=== PATIENT | male | born 1965 | race Caucasian/White ===

== ENCOUNTER 2019-05-09 06:47 | Day surgery (SDC) | payer BC, OTHER ==
[~2019-05-09 06:47] MED LIST: Lactated Ringers 1,000 ML IV SCH; Sodium Chloride 0.9% 10 ML Syringe FLUSH PRN
[2019-05-09] MEDS ORDERED: Midazolam 1 MG/ML 2 ML SDV IV ONE (06:48)
[2019-05-09] MEDS ORDERED: Propofol 200 MG/20 ML SDV IV ONE (06:48)
--- NOTE | 2019-05-09 08:21 | PCM.OPNOTE ---
- General Post-Op/Procedure Note Date of Surgery/Procedure: 05/09/19 Operative Procedure(s): c scope with biopsy Findings: ascending colon polyp Pre Op Diagnosis: screening Post-Op Diagnosis: colon polyp Anesthesia Technique: MAC Primary Surgeon: Bismark Yañez Anesthesia Provider: Jordan Roldan Pathology: ascending colon Complications: None Condition: Good Free Text/Narrative:: see dictation
--- NOTE | 2019-05-09 10:58 | OR ---
DATE OF OPERATION: 05/09/2019 SURGEON: Bismark Yañez MD PROCEDURE PERFORMED: Colonoscopy with cold forceps biopsy. PREOPERATIVE DIAGNOSIS: Need for screening colonoscopy. POSTOPERATIVE DIAGNOSIS: Polyp, ascending colon. INDICATIONS FOR PROCEDURE: This is a 54-year-old white male who presents with initial screening colonoscopy. He was offered and accepted same. DESCRIPTION OF OPERATION: After an excellent IV sedation was administered, digital rectal exam was performed. No marked abnormality was noted. Flexible colonoscope was inserted and advanced to cecum. Prep was excellent. The following findings were noted: Ascending colon, small hyperplastic-appearing lesion, biopsied and sent for permanent. Transverse colon, unremarkable. Descending colon, unremarkable. Sigmoid and rectum, unremarkable. Colon was deflated. Scope was removed. Patient tolerated the procedure well. Results by letter. /[id number] /MODL
== END 2019-05-09 09:02 | disposition home or self-care (01) ==
LOC: FB.SDS 06:47
PROVIDERS: ATTEND Surgery
DX: Z12.11 Encounter for screening for malignant neoplasm of colon (principal); K63.5 Polyp of colon; F17.200 Nicotine dependence, unspecified, uncomplicated; G47.00 Insomnia, unspecified
CPT/HCPCS: 45380; 88305; J2250; J2704; J7120